=== PATIENT | male | born 1985 | race African-American/Black ===

== ENCOUNTER → 2016-09-21 | Outpatient (CLI) | payer OTHER ==
[~2016-09-21] MED LIST: ALPR.25T PO; GADOBUTROL 7.5 MMOL/7.5 ML (GADAVIST) VIAL IV ONE; HYOS0.1281 PO
--- NOTE | 2016-09-21 13:53 | Diagnostic Imaging Report ---
PROCEDURE: MR imaging of the brain with and without contrast. TECHNIQUE: Multiplanar, multisequence MR imaging of the brain was performed with and without contrast. INDICATION: Headache. Right foot numbness and dizziness. COMPARISON: Prior comparison exam of CT scan from 2013 is reviewed. No prior MRI of the brain is seen. CONTRAST: 7 mL of Gadavist is administered intravenously. FINDINGS: There is a relatively large abnormality seen within the left frontoparietal junction area with dimensions of 2.7 x 1.5 x 4.6 cm. There is signal void in it compatible with a high flow in numerous vessels compatible with an arteriovenous malformation in the brain. The abnormal dilated vessels appear to have drainage to the superior sagittal sinus. There are prominent arterial branches supplying it arising from the anterior cerebral arteries. There is mild surrounding edema around it. There is a suggestion of some prominent venous drainage through the internal cerebral vein into the straight sinus as well. There is no diffusion restriction to suggest an acute infarct or other diffusion abnormality. There is no evidence of a demyelinating lesion or neoplasm. The brainstem and the cerebellum appear unremarkable. There is CSF intensity filling the slightly dilated sella compatible with empty sella syndrome. There is no hydrocephalus. No extra-axial fluid collection is seen. The internal auditory canals and inner ear structures appear grossly unremarkable. IMPRESSION: A 4.6 cm left frontoparietal brain AVM. Since there is no previous MRI for comparison, a concurrent brain CT scan or preferably CTA of the head is recommended for further vascular assessment and for better equivalent comparison with prior CT of 09/08/2013 to assess for overall size change. Dictated by: Dictated on workstation # [id number]
--- NOTE | 2016-09-21 14:19 | Diagnostic Imaging Report ---
PROCEDURE: MR angiography of the brain without the use of contrast. TECHNIQUE: 3D [id number] non contrast enhanced MR angiography of the head was performed. A source data was reformatted into rotating MIP projections. INDICATION: AVM. FINDINGS: The entire carotid arteries are patent. The middle cerebral arteries are patent. The left anterior cerebral artery is patent. The right anterior cerebral artery A1 segment is patent. The A2 segment appears to terminate after a short course with suggestion of a collateral to the relatively large left DIDIER. 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 The left relatively large anterior cerebral artery courses superiorly as an azygos DIDIER before it bifurcates into two pericallosal branches. The posterior cerebral arteries, the basilar artery, and the vertebral arteries appear patent. The vertebral artery on the right side appears slightly more prominent. There is artifactual loss of signal at the base of the skull level with artifact over the vertebral arteries. No definite high-grade stenosis, occlusion, or aneurysm seen. There is a left frontoparietal AVM. There are feeding branches arising from the pericallosal arteries of the anterior cerebral artery. There are enlarged draining veins seen. There is also a less prominent contribution of the feeding vessels from the ascending branches of the left MCA. There is question of a small branch supply from the left CAMP TENDER as well. The venous drainage is mainly into the superior sagittal sinus with some drainage into the internal cerebral vein suggested as well. IMPRESSION: 1. Brain parenchymal AVM in the left frontoparietal region with arterial supply from multiple branches, most prominent from the pericallosal arteries, and to a lesser extent from ascending branches of the left MCA, and possibly some contribution from the left CAMP TENDER. The main venous drainage is into the superior sagittal sinus with some venous drainage into the internal cerebral vein into the straight sinus. 2. Further evaluation with CTA or conventional angiogram is suggested. Dictated by: Dictated on workstation # [id number]
== END ==
LOC: RAD 10:30
PROVIDERS: ATTEND Nurse Practitioner Community Health
DX: Q27.30 Arteriovenous malformation, site unspecified (principal)
CPT/HCPCS: 70544; 70553

== ENCOUNTER 2018-10-24 08:34 | Emergency (ER) | payer SELFPAY ==
[~2018-10-24] VITALS: Ht 182.9 cm; Wt 97.5 kg
[~2018-10-24 08:34] MED LIST changes: -GADOBUTROL 7.5 MMOL/7.5 ML (GADAVIST) VIAL IV ONE
[2018-10-24] MEDS ORDERED: ATROPINE INJECTION 1 MG/10 ML SYR (ABBOTT) INJ ONE (08:36)
[2018-10-24] MEDS ORDERED: SUCCINYLCHOLINE INJ 100 MG/5 ML SYR INJ ONE (08:36)
[2018-10-24] MEDS ORDERED: ROCURONIUM 10 MG/ML 5 ML SYRINGE IV ONE ×2 (08:36→10:30)
[2018-10-24] MEDS ORDERED: MIDAZOLAM 5 MG/5 ML (VERSED) VIAL IJ ONE (08:36)
--- NOTE | 2018-10-24 08:38 | NUR ---
VOMITING NASAL AIRWAY SUCTION AND SUCTION BY MOUTH COMPLETED.
--- NOTE | 2018-10-24 08:38 | NUR ---
ATTEMPT FOR A ORAL AIRWAY BY STUART HAWKINS.
--- NOTE | 2018-10-24 08:43 | NUR ---
STUART RN BAGGING ET PREPERATION FOR INTUBATION. SUCCINYLCHOLIE 100MG IV GIVEN. 0834 VERSED 5MG IV GIVEN. 0844 ROCURONIUM 100MG IV GIVEN.
[2018-10-24] MEDS ORDERED: LACTATED RINGERS 1,000 ML IV ONE ×2 (08:48→11:09)
[2018-10-24] MEDS ORDERED: NS IV 1000 ML 1,000 ML IV ONE ×2 (08:48→09:55)
--- NOTE | 2018-10-24 08:54 | NUR ---
RECTAL TEMP 106.7 ICE PACKS APPLIED TO BODY. ESCALATOR INSTALLER CONTACTED FOR COOLING BLANKETS.
[2018-10-24] MEDS ORDERED: ACETAMINOPHEN 650 MG SUPP (TYLENOL) PR ONE (09:00)
--- NOTE | 2018-10-24 09:02 | NUR ---
TO CT WITH THIS RN, DR GERARD, STUDENT NURSE, MONITORING SPECIALIST, AND RT.
--- NOTE | 2018-10-24 09:18 | NUR ---
BACKT FORM CT.
[2018-10-24 09:25] LABS: BASOPHILS % (AUTO) 0 % (0-10); EOSINOPHILS # (AUTO) 0.1 10^3/uL (0.0-0.3); EOSINOPHILS % (AUTO) 1 % (0-10); HEMATOCRIT 45 % (40-54); HEMOGLOBIN 15.3 G/DL (13.3-17.7); LYMPHOCYTES # (AUTO) 1.2 X 10^3 (1.0-4.0); LYMPHOCYTES % (AUTO) 13 % (12-44); MEAN CORPUSCULAR HEMOGLOBIN 30 PG (25-34); MEAN CORPUSCULAR HGB CONC 34 G/DL (32-36); MEAN CORPUSCULAR VOLUME 88 FL (80-99); MONOCYTES # (AUTO) 1.3 X 10^3 (0.0-1.0); MONOCYTES % (AUTO) 13 % (0-12); NEUTROPHILS # (AUTO) 7.1 X 10^3 (1.8-7.8); NEUTROPHILS % (AUTO) 73 % (42-75); PLATELET COUNT 288 10^3/uL (130-400); RED CELL DISTRIBUTION WIDTH 13.7 % (10.0-14.5); WHITE BLOOD COUNT 9.7 10^3/uL (4.3-11.0)
[2018-10-24 09:28] LABS: BILIRUBIN,URINE NEGATIVE (NEGATIVE); CLARITY,URINE CLEAR; COLOR,URINE YELLOW; GLUCOSE, URINE (UA) NEGATIVE (NEGATIVE); KETONES,URINE 1+ (NEGATIVE); LEUKOCYTE ESTERASE ,URINE 1+ (NEGATIVE); NITRITE,URINE NEGATIVE (NEGATIVE); PH,URINE 6 (5-9); PROTEIN,URINE 2+ (NEGATIVE); UROBILINOGEN,URINE 4 MG/DL (NORMAL)
--- NOTE | 2018-10-24 09:29 | Diagnostic Imaging Report ---
PROCEDURE: CT head wo r/o stroke. TECHNIQUE: Multiple contiguous axial images were obtained through the brain without the use of intravenous contrast. Auto Exposure Controls were utilized during the CT exam to meet ALARA standards for radiation dose reduction. INDICATION: Seizure. Comparison made with prior CT head from 09/08/2013 and prior MRI brain from 09/21/2016. FINDINGS: The ventricles and sulci are within normal limits. There is no hydrocephalus. There is no midline shift. There is a focal area of dystrophic calcification in the posterior left frontal lobe with some surrounding hyperdense areas. There are also some more bulbous hyperdense areas extending towards the vertex. When corresponding with the MRI, these more hyperdense bulbous areas correspond to large draining veins associated with the left posterior frontal lobe AVM. Overall when compared with prior examination of 2013, there is increased calcification and surrounding hyperdense areas presumably related to enlargement of the AVM. There is, however, no evidence of acute hemorrhage. There is no extra-axial fluid collection. Calvarium is intact. Sinuses and mastoid air cells are clear. IMPRESSION: Interval increase in size of the secondary findings of an arteriovenous malformation of the posterior left frontal lobe as described. No evidence of acute hemorrhage. If this has not been a previously evaluated with formal angiography is recommended for treatment planning. No other acute intracranial abnormality. Dictated by: Dictated on workstation # [id number]
--- NOTE | 2018-10-24 09:35 | NUR ---
DR GERARD IN FAMILY ROOM TALKING TO PT' S MOTHER.
[2018-10-24 09:37] LABS: PROTHROMBIN TIME PATIENT 13.3 SEC (12.2-14.7)
--- NOTE | 2018-10-24 09:38 | NUR ---
RT IN ROOM OBTAINING BLOOD GAS.
[2018-10-24 09:39] LABS: AMPHETAMINE SCREEN, URINE POSITIVE (NEGATIVE); BARBITURATE SCREEN URINE NEGATIVE (NEGATIVE); BENZODIAZEPINES SCREEN URINE NEGATIVE (NEGATIVE); CANNABINOID SCREEN, URINE POSITIVE (NEGATIVE); COCAINE SCREEN URINE NEGATIVE (NEGATIVE); METHADONE STAT NEGATIVE (NEGATIVE); METHAMPHETAMINE SCREEN URINE S POSITIVE (NEGATIVE); OPIATE SCREEN URINE NEGATIVE (NEGATIVE); OXYCODONE STAT NEGATIVE (NEGATIVE); PROPOXYPHENE STAT NEGATIVE (NEGATIVE); TRICYCLIC ANTIDEPRESSANTS SCRE NEGATIVE (NEGATIVE)
[2018-10-24 09:46] LABS: ALANINE AMINOTRANSFERASE 73 U/L (0-55); ALBUMIN 5.1 GM/DL (3.2-4.5); ALKALINE PHOSPHATASE 47 U/L (40-136); AMYLASE 51 U/L (25-125); BILIRUBIN,TOTAL 1.9 MG/DL (0.1-1.0); BUN/CREATININE RATIO 8; CALCIUM 10.5 MG/DL (8.5-10.1); CARBON DIOXIDE 24 MMOL/L (21-32); CHLORIDE 105 MMOL/L (98-107); CREATINE KINASE 2134 U/L (30-200); CREATININE SERUM 1.65 MG/DL (0.60-1.30); GFR ESTIMATED 59; GLUCOSE 102 MG/DL (70-105); LIPASE 26 U/L (8-78); MAGNESIUM 2.4 MG/DL (1.8-2.4); POTASSIUM 5.2 MMOL/L (3.6-5.0); SALICYLATE < 5.0 MG/DL (5.0-20.0); SODIUM 143 MMOL/L (135-145); TOTAL PROTEIN 8.5 GM/DL (6.4-8.2)
[2018-10-24 09:47] LABS: AMORPHOUS SEDIMENT,UR MOD AMOR URATES /LPF; BACTERIA,URINE MODERATE /HPF; RBC,URINE RARE /HPF; WBC,URINE 0-2 /HPF
[2018-10-24 09:48] LABS: URINE OTHER FEW SPERM /HPF
[2018-10-24 09:56] LABS: ACETAMINOPHEN < 10 UG/ML (10-30)
--- NOTE | 2018-10-24 09:59 | NUR ---
LAB CONTACTED FOR BLOOD DRAW. RECTAL TEMP AT THIS TIME 37.8 C OR 100F.
--- NOTE | 2018-10-24 10:05 | NUR ---
MOM BROUGHT INTO ROOM.
[2018-10-24 10:10] LABS: TSH (THYROID ANALYZER) 0.89 UIU/ML (0.35-4.94)
[2018-10-24 10:12] LABS: ABG BASE EXCESS -1.4 MMOL/L (-2.5-2.5); ABG OXYGEN SATURATION 98 % (94-100); ABG PCO2 60 MMHG (35-45); ABG PO2 126 MMHG (79-93); ABG TCO2 26.4 MMOL/L (21.0-31.0)
--- NOTE | 2018-10-24 10:12 | NUR ---
RAULH WITH PASTORAL CARE IN TALKING TO MOTHER.
--- NOTE | 2018-10-24 10:13 | NUR ---
LAB IN ROOM AT THIS TIME.
--- NOTE | 2018-10-24 10:15 | Diagnostic Imaging Report ---
Indication: Altered mental status, disorientation, intubation Comparison: 02/17/2015 Technique: Single radiograph of the chest dated 10/24/2018. Findings: Endotracheal tube is in place overlying the tracheal air column. This is slightly low lying, terminating approximately 1 cm above the level of the cisco. Recommend retraction of approximately 2 cm for optimal positioning. Enteric catheter is in place with the distal tip and sidehole within the stomach. The cardiac silhouette is at the upper limits of normal in size. No significant pulmonary vascular congestion. Low lung volumes. Mild veiling opacity within the left costophrenic angle may relate to tiny left pleural effusion. No pneumothorax. No acute osseous abnormality. IMPRESSION: Lines and tubes as described above. Endotracheal tube is slightly low lying. Recommend retraction of approximately 2 cm. Tiny left pleural effusion suspected. Low lung lines. Report was called to Dr. Enriquez [facility] ER by jesus at 10:15 am. Dictated by: Dictated on workstation # [id number]
[2018-10-24 10:16] LABS: ABG PH 7.24 (7.37-7.43)
[2018-10-24 10:17] LABS: ALLENS TEST YES-POS; PATIENT TEMP 101
--- NOTE | 2018-10-24 10:21 | NUR ---
MULTIPLE FAMILY IN ROOM. ASKED FOR ONLY TWO AT A TIME. MARISOL WENT WITH FAMILY INTO THE CONSULTATION ROOM.
--- NOTE | 2018-10-24 10:22 | NUR ---
PT STARTING TO HAVE EPISODES OF TWITCHING. DR GERARD NOTIFIED ET PHARMACY CONTACTED FOR ROCURONIUM.
--- NOTE | 2018-10-24 10:29 | NUR ---
RT IN ROOM PULLING ET TUBE TO 24CM PER RADIOLOGIST RECCOMENDATION.
--- NOTE | 2018-10-24 10:37 | NUR ---
PLANS ARE FOR DR TO CONTACT FOR TRANSFER.
[2018-10-24] MEDS ORDERED: cefTRIAXone FOR IV USE 1,000 MG in WATER (STERILE) FOR INJECTION 10 ML IV ONE (10:45)
--- NOTE | 2018-10-24 11:04 | NUR ---
NO CHANGE IN PT STATUS. MULITIPLE FAMILY MEMBERS IN ROOM AT THIS TIME.
--- NOTE | 2018-10-24 11:20 | NUR ---
DR GERARD STATES [facility] HAS ACCEPTED ET WE ARE WAITING ON THEM TO CALL US BACK FOR A ROOM. MOM NOTIFIED.
--- NOTE | 2018-10-24 11:21 | NUR ---
DR GERARD STATES SHE HAS CONTACTED RADIOLOGY FOR IMAGES TO BE CLOUDED AND HARD DISKS MADE.
--- NOTE | 2018-10-24 11:35 | NUR ---
SHIFT CAPTAIN AND DISPATCH NOTIFIED OF NEEDING TRANSFER TO .
--- NOTE | 2018-10-24 11:51 | NUR ---
RADIOLOGY CONTACTED FOR HARD DISKS AGAIN.
[2018-10-24 12:02] LABS: ABG OXYGEN SATURATION 92 % (94-100); ABG PCO2 51 MMHG (35-45); ABG PO2 72 MMHG (79-93); ABG TCO2 24.5 MMOL/L (21.0-31.0)
[2018-10-24 12:03] LABS: ABG PH 7.27 (7.37-7.43); ALLENS TEST POSITIVE; INSPIRED O2 VENT RR 16 VT500 100; PATIENT TEMP 98.4; VENTILATOR YES
--- NOTE | 2018-10-24 12:22 | NUR ---
DR GERARD IN ROOM AT THIS TIME.
[2018-10-24] MEDS ORDERED: MIDAZOLAM 5 MG/5 ML (VERSED) VIAL ONE (12:36)
[2018-10-24 12:49] VITALS: BP 121/87
[2018-10-24] MEDS ORDERED: MIDAZOLAM 5 MG/5 ML (VERSED) VIAL IVP ONE (13:00)
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
--- NOTE | 2018-10-24 16:41 | ED General ---
General Chief Complaint: Altered Mental Status Stated Complaint: AMS Nursing Triage Note: ARRIVED VIA EMS FROM HOME. REPORT IS THAT PT WAS RELEASED FROM [facility] ON TUESDAY AND STARTED DOING METH SINCE TUESDAY NIGHT WITH BROTHER. UPON EMS ARRIVAL PT SHAKING AND COMBATIVE. EMS CALLED IN ER FOR ORDERS. 10MG VALIUM GIVEN IM. UPON GETTING ON TO THE COT PT BEGAN HAVING SEIZURE LIKE ACTIVITY WITH POSTURING. VALIUM 5MH IV GIVEN. UPON EMS ARRIVAL PT IS BEING BAGGED, MOUTH CLAMPED, AND HAVING SEIXURE LIKE ACTIVITY. Nursing Sepsis Screen: No Definite Risk Source of Information: EMS, Family (MOTHER ( TREVON REVELES) ) Exam Limitations: Other (PT OBTUNDED) History of Present Illness Date Seen by Provider: Oct 24, 2018 Time Seen by Provider: 08:34 Initial Comments PT ARRIVES VIA EMS EMS STATES THAT BROTHER REPORTED TO THEM THAT HE HAD SOME "BAD METH" EMS REPORT THAT PT WAS SHAKING/"CONVULSING" AND WAS COMPLETELY OUT OF CONTROL AND VERY COMBATIVE AT THE SCENE, AND POLICE AND FIRE WERE ALSO ASSISTING AT THE SCENE PT WAS GIVEN VERSED 10 MG IM, AND THEN PT BEGAN HAVING SEIZURE LIKE ACTIVITY/ SHAKING ALL OVER AND "POSTURING". EMS WERE THEN ABLE TO ESTABLISH IV AND GAVE AND ADDITIONAL 5 MG VERSED IV, WITH SIGNIFICANT IMPROVEMENT IN SHAKING AND COMBATIVENESS, PER EMS ON ARRIVAL, PT WITH GENERALIZED TREMORS, WITH DECEREBRATE POSTURING, JAWS CLENCHED, DROOLING, PROFUSELY DIAPHORETIC, WITH SNOROUS BREATHING AND O2 SATS IN 60'S PT ALSO BEGAN VOMITING ON ARRIVAL. PER MOM, PT WAS RE[facility]ASED FROM [facility] ON Tuesday10/[facility]/18, AFTER BEING INCARCERATED FOR 2 YEARS SHE STATES THAT PT AND HIS BROTHER HAVE BEEN DOING METH SINCE HE GOT HOME ON TUESDAY ( MOM ALSO HAS EXTENSIVE DRUG ABUSE, ESPECIALLY METHAMPHETAMINES, AMONG OTHER SUBSTANCES) MOM STATES THAT BROTHER AND PT GOT HOME AROUND 0730 THIS AM AND BOTH WERE IN A SIMILAR CONDITION AND BROTHER WAS ON THE COUCH, BUT PT WAS WORSE. MOM STATES THAT PT WAS "FOAMING AND JERKING AND OUT OF IT" AND WAS COMPLETELY OUT OF CONTROL. MOM STATES THAT PT WAS SUPPOSED TO SEE HIS INTERVENTIONAL RADIOLOGY TECH YESTERDAY, BUT PT DID NOT GO. PT DOES HAVE A HISTORY OF BRAIN ANEURYSM --NO SURGERY DONE, PER MOM PT ALSO HAS HISTORY OF HTN, BUT DOES NOT TAKE MEDICATIONS FOR IT, PER MOM PCP: NONE Allergies and Home Medications Allergies Coded Allergies: Penicillins (Verified Adverse Reaction, Mild, 08/12/11) unknown reaction by pt Home Medications Hyoscyamine Sulfate 0.125 Mg Tablet, 0.125 MG PO Q4H Prescribed by: NICO WILSON on 09/16/15 1340 Patient Home Medication List Home Medication List Reviewed: Yes Review of Systems Review of Systems Constitutional: other (UNABLE TO OBTAIN) Past Vcdezzt-Taragy-Mlheil Hx Patient Social History Alcohol Use: Occasionally Uses Recreational Drug Use: Yes (+ METH, THC USE) Drug of Choice: METH, THC Smoking Status: Unknown if Ever Smoked Recent Foreign Travel: No Contact w/Someone Who Travel: No Recent Infectious Disease Expo: No Past Medical History Surgeries: Yes Appendectomy Respiratory: Yes Asthma Cardiac: Yes Hypertension Neurological: Yes (AVM BRAIN MALFORMATION) Stroke Reproductive Disorders: No Genitourinary: No Gastrointestinal: No Musculoskeletal: No Endocrine: No HEENT: No Cancer: No Psychosocial: Yes (POLYSUBSTANCE ABUSE) Depression Integumentary: No Blood Disorders: No Family Medical History Hypertension Physical Exam Vital Signs Vital Signs - First Documented 10/24/18 10/24/18 08:34 12:49 Temp 98.1 Pulse 188 Resp 16 B/P (MAP) 54/38 (43) Pulse Ox 87 O2 Delivery Ambu-Bag Capillary Refill : Less Than 3 Seconds Height, Weight, BMI Height: 6'9" Weight: 215lbs. oz. 97.205903fk; 27.32 BMI Method:Estimated General Appearance: Severe Distress, Other (PT PROFUSELY DIAPHORETIC, "GOOSEBUMPS" OVER ENTIRE BODY, SKIN FEELS COOL DISTALLY, BUT CORE/RECTAL TEMP IS 106.7 AND CORE OF BODY FEELS WARM. PT WITH SNOROUS BREATHING, DROOLING, AND COMPLETELY OBTUNDED, WITH GENERALIZED TREMORS, BODY TENSE WITH DECEREBRATE POSTURING AND JAWS ARE CLENCHED. ) Respiratory: Other ( ABOVE) Cardiovascular: Tachycardia Extremity: Slow Capillary Refill Neurologic/Psychiatric: Other ( ABOVE) Skin: Other (PT IS BLACK) Focused Exam Lactate Level 10/24/18 10:18: Lactic Acid Level 1.29 Procedures/Interventions Reason for Intubation: ALTERED MENTAL STATUS Date of ETT Placement: Oct 24, 2018 Time of ETT Placement: 0844 Intubation Method: orotracheal Tube Size: 7.50 Medications: Rocuronium, Succinylcholine, Versed Positive End Tide CO2: Yes Breath Sounds after Intubation: bilateral-equal Intubation Complications: no complications Post Intubation Xray: Yes (ET TUBE IN PLACE, BUT ADVISED TO PULL BACK APPROXIMATELY 2 CM, PER RADIOLOGIST REPORT. OTHER LINES IN PLACE. ) PT INTUBATED BY RT STAFF NO COMPLICATIONS. Progress/Results/Core Measures Suspected Sepsis Recent Fever Within 48 Hours: No Infection Criteria Present: None New/Unexplained Altered Menta: No Sepsis Screen: No Definite Risk SIRS Temperature:98.1 Pulse: 105 Respiratory Rate: 16 Laboratory Tests 10/24/18 09:00: White Blood Count 9.7 Blood Pressure 121 /87 Mean: 98 10/24/18 10:18: Lactic Acid Level 1.29 Laboratory Tests 10/24/18 09:00: Creatinine 1.65H, INR Comment 1.0, Platelet Count 288, Total Bilirubin 1.9H Results/Orders Lab Results Laboratory Tests Test 10/24/18 09:00 10/24/18 09:45 10/24/18 10:18 10/24/18 11:32 Range/Units White Blood Count 9.7 4.3-11.0 10^3/uL Red Blood Count 5.13 4.35-5.85 10^6/uL Hemoglobin 15.3 13.3-17.7 G/DL Hematocrit 45 40-54 % Mean Corpuscular Volume 88 80-99 FL Mean Corpuscular Hemoglobin 30 25-34 PG Mean Corpuscular Hemoglobin Concent 34 32-36 G/DL Red Cell Distribution Width 13.7 10.0-14.5 % Platelet Count 288 130-400 10^3/uL Mean Platelet Volume 10.0 7.4-10.4 FL Neutrophils (%) (Auto) 73 42-75 % Lymphocytes (%) (Auto) 13 12-44 % Monocytes (%) (Auto) 13 H 0-12 % Eosinophils (%) (Auto) 1 0-10 % Basophils (%) (Auto) 0 0-10 % Neutrophils # (Auto) 7.1 1.8-7.8 X 10^3 Lymphocytes # (Auto) 1.2 1.0-4.0 X 10^3 Monocytes # (Auto) 1.3 H 0.0-1.0 X 10^3 Eosinophils # (Auto) 0.1 0.0-0.3 10^3/uL Basophils # (Auto) 0.0 0.0-0.1 10^3/uL Prothrombin Time 13.3 12.2-14.7 SEC INR Comment 1.0 0.8-1.4 Activated Partial Thromboplast Time 25 24-35 SEC Urine Color YELLOW Urine Clarity CLEAR Urine pH 6 5-9 Urine Specific [place] 1.020 1.016-1.022 Urine Protein 2+ H NEGATIVE Urine Glucose (UA) NEGATIVE NEGATIVE Urine Ketones 1+ H NEGATIVE Urine Nitrite NEGATIVE NEGATIVE Urine Bilirubin NEGATIVE NEGATIVE Urine Urobilinogen 4 H NORMAL MG/DL Urine Leukocyte Esterase 1+ H NEGATIVE Urine RBC (Auto) NEGATIVE NEGATIVE Urine RBC RARE /HPF Urine WBC 0-2 /HPF Urine Squamous Epithelial Cells NONE /HPF Urine Renal Epithelial Cells NONE /HPF Urine Crystals PRESENT H /LPF Urine Amorphous Sediment MOD PRANAV URATES H /LPF Urine Bacteria MODERATE H /HPF Urine Casts NONE /LPF Urine Mucus SMALL H /LPF Urine Other FEW SPERM H /HPF Urine Culture Indicated NO Sodium Level 143 135-145 MMOL/L Potassium Level 5.2 H 3.6-5.0 MMOL/L Chloride Level 105 98-107 MMOL/L Carbon Dioxide Level 24 21-32 MMOL/L Anion Gap 14 5-14 MMOL/L Blood Urea Nitrogen 14 7-18 MG/DL Creatinine 1.65 H 0.60-1.30 MG/DL Estimat Glomerular Filtration Rate 59 BUN/Creatinine Ratio 8 Glucose Level 102 70-105 MG/DL Calcium Level 10.5 H 8.5-10.1 MG/DL Corrected Calcium 8.5-10.1 MG/DL Magnesium Level 2.4 1.8-2.4 MG/DL Total Bilirubin 1.9 H 0.1-1.0 MG/DL Aspartate Amino Transf (AST/SGOT) 91 H 5-34 U/L Alanine Aminotransferase (ALT/SGPT) 73 H 0-55 U/L Alkaline Phosphatase 47 40-136 U/L Total Creatine Kinase 2134 H 30-200 U/L Creatine Kinase MB 10.0 *H <6.6 NG/ML Myoglobin 2810.0 H 10.0-92.0 NG/ML Troponin I < 0.028 <0.028 NG/ML B-Type Natriuretic Peptide 10.5 <100.0 PG/ML Total Protein 8.5 H 6.4-8.2 GM/DL Albumin 5.1 H 3.2-4.5 GM/DL Amylase Level 51 25-125 U/L Lipase 26 8-78 U/L TSH [place] Testing 0.89 0.35-4.94 UIU/ML Salicylates Level < 5.0 L 5.0-20.0 MG/DL Urine Opiates Screen NEGATIVE NEGATIVE Urine Oxycodone Screen NEGATIVE NEGATIVE Urine Methadone Screen NEGATIVE NEGATIVE Urine Propoxyphene Screen NEGATIVE NEGATIVE Acetaminophen Level < 10 L 10-30 UG/ML Urine Barbiturates Screen NEGATIVE NEGATIVE Ur Tricyclic Antidepressants Screen NEGATIVE NEGATIVE Urine Phencyclidine Screen NEGATIVE NEGATIVE Urine Amphetamines Screen POSITIVE H NEGATIVE Urine Methamphetamines Screen POSITIVE H NEGATIVE Urine Benzodiazepines Screen NEGATIVE NEGATIVE Urine Cocaine Screen NEGATIVE NEGATIVE Urine Cannabinoids Screen POSITIVE H NEGATIVE Serum Alcohol < 10 <10 MG/DL Blood Gas Puncture Site R RAD RIGHT RADIAL Blood Gas Patient Temperature 101 98.4 Arterial Blood pH 7.24 *L 7.27 *L 7.37-7.43 Arterial Blood Partial Pressure CO2 60 H 51 H 35-45 MMHG Arterial Blood Partial Pressure O2 126 H 72 L 79-93 MMHG Arterial Blood HCO3 25 23 23-27 MMOL/L Arterial Blood Total CO2 26.4 24.5 21.0-31.0 MMOL/L Arterial Blood Oxygen Saturation 98 92 L 94-100 % Arterial Blood Base Excess -1.4 -3.0 L -2.5-2.5 MMOL/L [place] Test YES-POS POSITIVE Blood Gas Ventilator Setting NA YES Blood Gas Inspired Oxygen SEE COMMENT VENT RR 16 VT500 100 Lactic Acid Level 1.29 0.50-2.00 MMOL/L My Orders Orders - CAROLIN GERARD DO Ed Iv/Invasive Line Start (10/24/18 08:48) Ekg Tracing (10/24/18 08:48) Catheter(Urinary) Insert & Ass 03,15 (10/24/18 08:48) Ng Tube Insert & Assessment (10/24/18 08:48) Monitor-Rhythm Ecg Trace Only (10/24/18 08:48) Ct Head Wo-R/O Stroke (10/24/18 08:48) Chest 1 View, Ap/Pa Only (10/24/18 08:48) Acetaminophen (10/24/18 08:48) Alcohol (10/24/18 08:48) Amylase (10/24/18 08:48) Arterial Blood Gas (10/24/18 08:48) BNP (10/24/18 08:48) Cbc With Automated Diff (10/24/18 08:48) Comprehensive Metabolic Panel (10/24/18 08:48) Creatine Kinase (10/24/18 08:48) Creatine Kinase Mb (10/24/18 08:48) Drug Screen Stat (Urine) (10/24/18 08:48) Lactic Acid Analyzer (10/24/18 08:48) Lipase (10/24/18 08:48) Magnesium (10/24/18 08:48) Protime With Inr (10/24/18 08:48) Partial Thromboplastin Time (10/24/18 08:48) Salicylate (10/24/18 08:48) Thyroid Analyzer (10/24/18 08:48) Troponin I (10/24/18 08:48) Ua Culture If Indicated (10/24/18 08:48) Myoglobin Serum (10/24/18 08:48) Ed Iv/Invasive Line Start (10/24/18 08:48) Ns Iv 1000 Ml (Sodium Chloride 0.9%) (10/24/18 08:48) Lactated Ringers (Lr 1000 Ml Iv Solution (10/24/18 08:48) Acetaminophen Suppository (Tylenol Suppo (10/24/18 09:00) Ed Iv/Invasive Line Start (10/24/18 09:55) Ns Iv 1000 Ml (Sodium Chloride 0.9%) (10/24/18 09:55) Arterial Blood Gas (10/24/18 10:05) Rocuronium 5 Ml Syringe (Rocuronium 5 Ml (10/24/18 10:30) Arterial Blood Gas (10/24/18 10:32) Ceftriaxone For Iv Use (Rocephin For I (10/24/18 10:45) Ed Iv/Invasive Line Start (10/24/18 11:09) Lactated Ringers (Lr 1000 Ml Iv Solution (10/24/18 11:09) Blood Culture (10/24/18 11:40) Blood Culture (10/24/18 11:41) Midazolam Injection (Versed Injection) (10/24/18 12:36) Midazolam Injection (Versed Injection) (10/24/18 13:00) Sputum Culture (10/24/18 14:29) Medications Given in ED Current Medications Medications Dose Ordered Sig/Annel Route Start Time Stop Time Status Last Admin Dose Admin Acetaminophen 1,950 mg ONCE ONCE OH 10/24/18 09:00 10/24/18 09:01 DC 10/24/18 09:21 1,950 MG Ceftriaxone Sodium 1000 mg/ Sterile Water 10 ml @ 200 mls/hr ONCE ONCE IV 10/24/18 10:45 10/24/18 10:47 DC 10/24/18 10:57 200 MLS/HR Lactated Ringer's 1,000 ml @ 0 mls/hr Q0M ONCE IV 10/24/18 08:48 10/24/18 08:50 DC 10/24/18 09:21 1,000 MLS/HR Lactated Ringer's 1,000 ml @ 0 mls/hr Q0M ONCE IV 10/24/18 11:09 10/24/18 11:10 DC 10/24/18 11:13 1,000 MLS/HR Midazolam HCl 10 mg ONCE ONCE IVP 10/24/18 13:00 10/24/18 13:01 DC 10/24/18 12:40 10 MG Rocuronium [place] 100 mg ONCE ONCE IV 10/24/18 10:30 10/24/18 10:31 DC 10/24/18 10:28 100 MG Sodium Chloride 1,000 ml @ 0 mls/hr Q0M ONCE IV 10/24/18 08:48 10/24/18 08:50 DC 10/24/18 08:41 1,000 MLS/HR Sodium Chloride 1,000 ml @ 0 mls/hr Q0M ONCE IV 10/24/18 09:55 10/24/18 09:56 DC 10/24/18 09:50 1,000 MLS/HR Vital Signs/I&O 10/24/18 10/24/18 08:34 12:49 Temp 98.1 Pulse 188 105 Resp 16 16 B/P (MAP) 54/38 (43) 121/87 (98) Pulse Ox 87 100 O2 Delivery Ambu-Bag Mechanical Ventilator Capillary Refill : Less Than 3 Seconds Blood Pressure Mean: 98 Progress Note : Progress Note IMMEDIATELY STARTED BAGGING PT ON ARRIVAL, ATTEMPTS TO PASS NASAL AIRWAY AND ORAL AIRWAY UNSUCCESSFUL--THIS WAS ATTEMPTED PT WAS BEING PREPPED FOR INTUBATION O2 SATS UP WITH BAGGING POST INTUBATION, O2 SATS UP TO 100% PT GIVEN TYLENOL RECTALLY AND ICE BAGS APPLIED TO PT, WITH DECREASED IN BODY TEMP--TEMP DOWN TO 99 AT TIME OF TRANSFER NO DETERIORATION IN PT'S CONDITION DURING ER STAY BP UP, HEART RATE DOWN, TEMP DOWN AT TIME OF TRANSFER. ECG Initial ECG Impression Date: Oct 24, 2018 Initial ECG Impression Time: 09:21 Initial ECG Rate: 157 Initial ECG Rhythm: S.Tach Initial ECG Comparisson: No Previous ECG Available Diagnostic Imaging Comments CT HEAD--INTERVAL INCREASE IN SIZE OF SECONDARY FINDINGS OF AV MALFORMATION OF POSTERIOR LEFT FRONTAL LOBE. NO ACUTE HEMORRHAGE. NO ACUTE PROCESS--PER RADIOLOGIST VERBAL REPORT--COMPARED TO CT HEAD FROM 08/2013 AND MRI 08/2016 CXR--TUBES/LINES IN PLACE, WITH LOW-LYING ET TUBE, RECOMMEND RETRACTION OF 2 CM ; TINY LEFT PLEURAL EFFUSION. PER RADIOLOGIST VIA PHONE Reviewed: Reviewed by Me, Discussed w/Radiologist Critical Care Note Critical Care Total Time (minutes) 60 MINUTES Departure Communication (Admissions) 0855--SPOKE WITH DR. FRANCISCO, REGARDING RECOMMENDATIONS FOR HEART RATE WITH HYPOTENSION, HE ADVISES IV FLUIDS ONLY AT THIS TIME. 1030--ATTEMPTING TO CONTACT [facility]--MULTIPLE ATTEMPTS USING MULTIPLE DIFFERENT NUMBERS, THEIR PHONE LINES NOT WORKING. THIS FACILITY IS ON ICU DIVERSION. 1104--EVENTUALLY ABLE TO CONTACT [facility] TRANSFER LINE--THEY WILL CALL BACK 1113--[facility] CALLED BACK, DR. MIQUEL CORONEL HAS ACCEPTED PT FOR TRANSFER. NO ADDITIONAL RECOMMENDATIONS DUE TO EXTREMELY BAD WEATHER, NO AIR TRANSPORT IS AVAILABLE, SO PT WILL BE TRANSFERRED BY GROUND EMS. Impression Primary Impression: SEVERE METHAMPHETAMINE TOXICITY Additional Impressions: Seizure-like activity SVT (supraventricular tachycardia) Hypotension Shock HYPERTHERMIA Renal insufficiency Acidosis Elevated liver enzymes Acute respiratory failure Disposition: XFER SHT-TRM HOSP Condition: Critical (ERASED) Transfer Transfer Facility: Method of Transfer: EMS ([facility]) Departure-Patient Inst. Referrals: RAMOS MORALES DO (PCP/Family) Primary Care Physician CAROLIN GERARD DO Oct 24, 2018 16:41
== END 2018-10-24 12:49 | disposition short-term general hospital (02) ==
LOC: EDUNIT# 08:34 → ER 08:35
DX: T43.621A Poisoning by amphetamines, accidental (unintentional), initial encounter (principal); I47.1 Supraventricular tachycardia; I95.9 Hypotension, unspecified; R57.9 Shock, unspecified; R50.9 Fever, unspecified; N28.9 Disorder of kidney and ureter, unspecified; E87.2 Acidosis; J96.00 Acute respiratory failure, unspecified whether with hypoxia or hypercapnia; R94.5 Abnormal results of liver function studies; R25.9 Unspecified abnormal involuntary movements; J45.909 Unspecified asthma, uncomplicated; I10 Essential (primary) hypertension; F12.10 Cannabis abuse, uncomplicated; F15.10 Other stimulant abuse, uncomplicated; F32.9 Major depressive disorder, single episode, unspecified; Z86.73 Personal history of transient ischemic attack (TIA), and cerebral infarction without residual deficits; Z91.14 Patient's other noncompliance with medication regimen; Z88.0 Allergy status to penicillin; Z90.49 Acquired absence of other specified parts of digestive tract
CPT/HCPCS: 31500; 36415; 51702; 70450; 71045; 80053; 80306; 80320; 80329; 81000; 82150; 82550; 82553; 82805; 83605; 83690; 83735; 83874; 83880; 84443; 84484; 85025; 85610; 85730; 87040; 87070; 87077; 87205; 93005; 93041; 96361; 96365; 99291

== ENCOUNTER 2019-09-19 22:47 | Emergency (ER) | payer MEDICAID, OTHER ==
[2019-09-19] MEDS ORDERED: NS IV 1000 ML 1,000 ML IV SCH (22:49)
--- NOTE | 2019-09-19 23:21 | ED Psychosocial ---
General Stated Complaint: COUGH,PARANOIA Source: patient (DIFFICULT, LIMITED AND VAGUE HISTORIAN), EMS, old records History of Present Illness Date Seen by Provider: Sep 19, 2019 Time Seen by Provider: 22:54 Initial Comments PT ARRIVES VIA EMS EMS WAS CALLED TO [facility], PT SHOWED UP THERE TONIGHT, BECAUSE HE THOUGHT SOMEONE WAS FOLLOWING HIM--PARANOID POLICE HAVE RECEIVED MULTIPLE CALLS THIS LAST WEEK FOR PT BEING PARANOID AND AND RANDOMLY GOING UP TO PEOPLE'S HOUSES AND KNOCKING ON DOORS, ETC. PT STATES HE HAS BEEN DOING METH--USES ON REGULAR BASIS. STATES TONIGHT HE SMOKED IT, ALONG WITH MARIJUANA, AND STATES "THERE MIGHT HAVE BEEN SOME COCAINE" PT HAS USED DRUGS IV IN THE PAST WELL--INCLUDING METH, COCAINE, "SYNTHETIC HEROIN" PT HAD REPORTED COUGH AND SORE THROAT SINCE MARCH TO EMS, BUT DOES NOT VOICE THOSE COMPLAINTS HERE. PT HAS NO COMPLAINTS OF ANY KIND NOW. PCP: DR. MORLAES Allergies and Home Medications Allergies Coded Allergies: Penicillins (Verified Adverse Reaction, Mild, 08/12/11) unknown reaction by pt Home Medications Hyoscyamine Sulfate 0.125 Mg Tablet, 0.125 MG PO Q4H Prescribed by: NICO WILSON on 09/16/15 1340 Patient Home Medication List Home Medication List Reviewed: Yes Review of Systems Constitutional: no symptoms reported Psychiatric/Neurological: See HPI Past Uordogv-Wdhdyg-Fkbosk Hx Past Med/Social Hx: Reviewed and Corrections made Patient Social History Recreational Drug Use: Yes (+IV METH, COCAINE, "SYNTHETIC HEROIN", THC, OTHERS- HEAVY/REGULAR USE ) Drug of Choice: + IV METH, COCAINE, "SYNTHETIC HEROIN", THC, OTHERS- HEAVY/REGULAR USE Smoking Status: Current Everyday Smoker Type Used: Cigarettes Past Medical History Surgeries: Yes Appendectomy, Tonsillectomy Respiratory: Yes Asthma Cardiac: Yes (DOES NOT TAKE MEDICATIONS) Hypertension Neurological: Yes (AVM BRAIN MALFORMATION--NO SURGERY) Stroke Reproductive Disorders: No Genitourinary: No Gastrointestinal: No Musculoskeletal: No Endocrine: No HEENT: No Cancer: No Psychosocial: Yes (POLYSUBSTANCE ABUSE) Depression Integumentary: No Blood Disorders: No Family Medical History Hypertension PT HAS BEEN INCARCERATED FOR 2 YEARS, AND WAS RELEASED 10/20/18 PT IN ER 10/24/18 AFTER OVERDOSING ON METHAMPHETAMINE AND WAS SEVERELY TOXIC FROM IT, REQUIRING INTUBATION AND TRANSFER TO Physical Exam Capillary Refill : Height, Weight, BMI Height: 6'9" Weight: 215lbs. oz. 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, no motor/sensory deficits, alert, oriented x 3 Appearance/Memory: denies illness, impaired insight, impaired recent memory Behavior/Eye Contact: No threatening eye contact, No belligerent, No compulsive, No uncooperative Thoughts/Hallucinations: no apparent hallucination, flight of ideas; No grandiose, No obsessive, No persecution, No phobic, No islam; other (NO PARANOID BEHAVIOR/CONVERSATIONS DURING ER STAY) Skin: normal color (PT IS BLACK), warm/dry Procedures/Interventions Date of ETT Placement: Oct 24, 2018 Time of ETT Placement: 08 Progress/Results/Core Measures Results/Orders Lab Results Laboratory Tests Test 09/19/19 23:05 09/19/19 23:18 Range/Units Group A Streptococcus Screen NEGATIVE NEGATIVE White Blood Count 9.5 4.3-11.0 10^3/uL Red Blood Count 4.61 4.35-5.85 10^6/uL Hemoglobin 14.0 13.3-17.7 G/DL Hematocrit 40 40-54 % Mean Corpuscular Volume 87 80-99 FL Mean Corpuscular Hemoglobin 30 25-34 PG Mean Corpuscular Hemoglobin Concent 35 32-36 G/DL Red Cell Distribution Width 14.1 10.0-14.5 % Platelet Count 290 130-400 10^3/uL Mean Platelet Volume 9.4 7.4-10.4 FL Neutrophils (%) (Auto) 73 42-75 % Lymphocytes (%) (Auto) 17 12-44 % Monocytes (%) (Auto) 8 0-12 % Eosinophils (%) (Auto) 2 0-10 % Basophils (%) (Auto) 0 0-10 % Neutrophils # (Auto) 7.0 1.8-7.8 X 10^3 Lymphocytes # (Auto) 1.6 1.0-4.0 X 10^3 Monocytes # (Auto) 0.8 0.0-1.0 X 10^3 Eosinophils # (Auto) 0.1 0.0-0.3 10^3/uL Basophils # (Auto) 0.0 0.0-0.1 10^3/uL Sodium Level 139 135-145 MMOL/L Potassium Level 3.7 3.6-5.0 MMOL/L Chloride Level 101 98-107 MMOL/L Carbon Dioxide Level 25 21-32 MMOL/L Anion Gap 13 5-14 MMOL/L Blood Urea Nitrogen 5 L 7-18 MG/DL Creatinine 0.90 0.60-1.30 MG/DL Estimat Glomerular Filtration Rate > 60 BUN/Creatinine Ratio 6 Glucose Level 85 70-105 MG/DL Calcium Level 9.4 8.5-10.1 MG/DL Corrected Calcium 9.0 8.5-10.1 MG/DL Magnesium Level 2.1 1.6-2.4 MG/DL Total Bilirubin 1.0 0.1-1.0 MG/DL Aspartate Amino Transf (AST/SGOT) 34 5-34 U/L Alanine Aminotransferase (ALT/SGPT) 40 0-55 U/L Alkaline Phosphatase 47 40-136 U/L Total Protein 7.4 6.4-8.2 GM/DL Albumin 4.5 3.2-4.5 GM/DL Free Thyroxine 1.06 0.70-1.48 NG/DL TSH [place] Testing 0.00 L 0.35-4.94 UIU/ML Salicylates Level < 5.0 L 5.0-20.0 MG/DL Acetaminophen Level < 10 L 10-30 UG/ML Serum Alcohol < 10 <10 MG/DL Monoscreen NEGATIVE NEGATIVE Micro Results Microbiology 09/19/19 Influenza Types A,B Antigen (EDUARD) - Final, Complete My Orders Orders - CAROLIN GERARD DO Chest 1 View, Ap/Pa Only (09/19/19 23:02) Magnesium (09/19/19 23:02) Monotest (09/19/19 23:02) Rapid Strep A Screen (09/19/19 23:02) Influenza A And B Antigens (09/19/19 23:02) Progress Progress Note : Progress Note PT HAD NO COMPLAINTS, VITALS STABLE PT REFUSED TO GIVE UA 0009--PT NOW SIGNING OUT AMA. GAIT STEADY, SPEECH CLEAR. Initial ECG Impression Date: Sep 19, 2019 Initial ECG Impression Time: 23:10 Initial ECG Rate: 86 Initial ECG Rhythm: Normal Sinus Departure Impression Primary Impression: Left against medical advice Additional Impression: Methamphetamine use Disposition: 07 AGAINST MEDICAL ADVICE Condition: Against Medical Advice Departure-Patient Inst. Referrals: RAMOS MORALES DO (PCP/Family) Primary Care Physician CAROLIN GERARD DO Sep 19, 2019 23:21
[2019-09-19 23:27] LABS: BASOPHILS % (AUTO) 0 % (0-10); EOSINOPHILS # (AUTO) 0.1 10^3/uL (0.0-0.3); EOSINOPHILS % (AUTO) 2 % (0-10); HEMATOCRIT 40 % (40-54); LYMPHOCYTES # (AUTO) 1.6 X 10^3 (1.0-4.0); LYMPHOCYTES % (AUTO) 17 % (12-44); MEAN CORPUSCULAR HEMOGLOBIN 30 PG (25-34); MEAN CORPUSCULAR HGB CONC 35 G/DL (32-36); MEAN CORPUSCULAR VOLUME 87 FL (80-99); MEAN PLATELET VOLUME 9.4 FL (7.4-10.4); MONOCYTES # (AUTO) 0.8 X 10^3 (0.0-1.0); MONOCYTES % (AUTO) 8 % (0-12); NEUTROPHILS % (AUTO) 73 % (42-75); PLATELET COUNT 290 10^3/uL (130-400); RED CELL DISTRIBUTION WIDTH 14.1 % (10.0-14.5); WHITE BLOOD COUNT 9.5 10^3/uL (4.3-11.0)
[2019-09-19 23:47] LABS: ALANINE AMINOTRANSFERASE 40 U/L (0-55); ALBUMIN 4.5 GM/DL (3.2-4.5); ALKALINE PHOSPHATASE 47 U/L (40-136); BUN/CREATININE RATIO 6; CALCIUM 9.4 MG/DL (8.5-10.1); CARBON DIOXIDE 25 MMOL/L (21-32); CHLORIDE 101 MMOL/L (98-107); GFR ESTIMATED > 60; GLUCOSE 85 MG/DL (70-105); MAGNESIUM 2.1 MG/DL (1.6-2.4); POTASSIUM 3.7 MMOL/L (3.6-5.0); SALICYLATE < 5.0 MG/DL (5.0-20.0); SODIUM 139 MMOL/L (135-145); TOTAL PROTEIN 7.4 GM/DL (6.4-8.2)
[2019-09-19 23:49] LABS: ACETAMINOPHEN < 10 UG/ML (10-30)
[2019-09-20 00:46] LABS: FREE T4 (FREE THYROXINE) 1.06 NG/DL (0.70-1.48)
--- NOTE | 2019-09-20 05:45 | Diagnostic Imaging Report ---
INDICATION: Cough COMPARISON: 10/24/2018 FINDINGS: Single frontal view of the chest demonstrates normal heart size and pulmonary vascularity. The lungs are well aerated and clear. No large pleural effusion or pneumothorax is seen. The visualized osseous structures show no acute abnormalities. IMPRESSION: 1. No acute cardiopulmonary process. Dictated by: Dictated on workstation # [id number]
== END 2019-09-20 00:12 | disposition left against medical advice (07) ==
LOC: EDUNIT# 22:47 → ER 22:48
DX: F15.90 Other stimulant use, unspecified, uncomplicated (principal); J45.909 Unspecified asthma, uncomplicated; I10 Essential (primary) hypertension; Z86.73 Personal history of transient ischemic attack (TIA), and cerebral infarction without residual deficits; Z88.0 Allergy status to penicillin
CPT/HCPCS: 36415; 71045; 80053; 80320; 80329; 83735; 84439; 84443; 85025; 86308; 87430; 87804; 93005

== ENCOUNTER 2019-10-22 01:39 | Emergency (ER) | payer OTHER ==
[~2019-10-22] VITALS: Ht 175 cm; Wt 84.0 kg
--- NOTE | 2019-10-22 01:56 | ED Headache ---
General Stated Complaint: HEADACHES History of Present Illness Date Seen by Provider: Oct 22, 2019 Time Seen by Provider: 01:45 Initial Comments Patient presents to ER by private conveyance with chief complaint of a headache. He came in to the ER and asked the front end web designer for some jackson so he could get something to eat or drink. He then locked himself in the bathroom and then refused to leave. When police were called he decided to check For his headache. He says he's had this headache for 3 days. He's had a history of headaches and his been using Tylenol or ibuprofen but is not sure which. He says he used methamphetamines today. The patient denies alcohol use. He is not having any weakness numbness slurring speech or facial droop. No history of stroke. He says [facility] 5 or 6 years ago he had a scan that demonstrated an AV malformation. He's never had stroke, hemorrhagic or ischemic. Follows with Dr. Morales. Headache is not the worst in his life time nor does have a thunderclap onset. He is not having any blurry vision nausea fever chills cough or shortness of breath. Allergies and Home Medications Allergies Coded Allergies: Penicillins (Verified Adverse Reaction, Mild, 08/12/11) unknown reaction by pt Home Medications Hyoscyamine Sulfate 0.125 Mg Tablet, 0.125 MG PO Q4H Prescribed by: NICO WILSON on 09/16/15 1340 Patient Home Medication List Home Medication List Reviewed: Yes Review of Systems Review of Systems Constitutional: No chills, No diaphoresis Eyes: Denies Blindness, Denies Blurred Vision Ears, Nose, Mouth, Throat: denies ear pain, denies nose pain Respiratory: No cough, No short of breath Cardiovascular: No chest pain, No edema Gastrointestinal: No abdominal pain, No nausea Genitourinary: No discharge, No dysuria Musculoskeletal: No back pain, No joint pain All Other Systems Reviewed Negative Unless Noted: Yes Past Lwojfqg-Qrjyre-Rgszhg Hx Patient Social History Alcohol Use: Denies Use Recreational Drug Use: Yes Drug of Choice: + IV METH, COCAINE, "SYNTHETIC HEROIN", THC, OTHERS- HEAVY/REGULAR USE Smoking Status: Current Someday Smoker Type Used: Cigarettes Recent Foreign Travel: No Contact w/Someone Who Travel: No Past Medical History Surgeries: Yes Appendectomy, Tonsillectomy Respiratory: Yes Asthma Cardiac: Yes (DOES NOT TAKE MEDICATIONS) Hypertension Neurological: Yes (AVM BRAIN MALFORMATION--NO SURGERY) Stroke Reproductive Disorders: No Genitourinary: No Gastrointestinal: No Musculoskeletal: No Endocrine: No HEENT: No Cancer: No Psychosocial: Yes (POLYSUBSTANCE ABUSE) Depression Integumentary: No Blood Disorders: No Family Medical History Hypertension PT HAS BEEN INCARCERATED FOR 2 YEARS, AND WAS RELEASED 10/20/18 PT IN ER 10/24/18 AFTER OVERDOSING ON METHAMPHETAMINE AND WAS SEVERELY TOXIC FROM IT, REQUIRING INTUBATION AND TRANSFER TO Physical Exam Vital Signs Capillary Refill : Height, Weight, BMI Height: 6'9" Weight: 215lbs. oz. 97.253498vh; 27.32 BMI Method:Estimated General Appearance: WD/WN, no apparent distress (animated, rhythmic, jerking motions) HEENT: PERRL/EOMI (3 mm bilateral reactive pupils), normal ENT inspection, TMs normal, pharynx normal Neck: non-tender, full range of motion, supple, normal inspection Cardiovascular: normal peripheral pulses, regular rate, rhythm Respiratory: no respiratory distress, no accessory muscle use Extremities: normal range of motion, normal inspection, no pedal edema, normal capillary refill Psychiatric: alert, oriented x 3 Crainal Nerves: normal hearing, normal speech, PERRL Coordination/Gait: normal gait Motor/Sensory: no motor deficit, no sensory deficit Skin: normal color, warm/dry Procedures/Interventions Date of ETT Placement: Oct 24, 2018 Time of ETT Placement: 08 Progress/Results/Core Measures Results/Orders My Orders Orders - YOANNA DYE Ketorolac Injection (Toradol Injection) (10/22/19 02:00) Progress Progress Note : Time: 02:01 Progress Note Suspect a combination of malingering and methamphetamine use. We have offered NSAIDs for his pain and encouraged him to follow-up with primary care. No red flag symptoms. Departure Impression Primary Impression: Headache Qualified Codes: G44.209 - Tension-type headache, unspecified, not intractab le Disposition: 01 HOME, SELF-CARE Condition: Stable Departure-Patient Inst. Decision time for Depature: 01:56 Referrals: RAMOS MORALES DO (PCP/Family) Primary Care Physician Patient Instructions: Tension Headache (DC) Add. Discharge Instructions: Tylenol 1000 mg every 8 hours as needed for headache. Ibuprofen 800 mg every 8 hours needed for headache. Drink fluids such as water. Get rest. Return to the ER if you have worsening symptoms YOANNA DYE Oct 22, 2019 01:56
[2019-10-22 01:59] VITALS: BP 143/97
[2019-10-22] MEDS ORDERED: KETOROLAC 30 MG/ML VIAL IM ONE (02:00)
== END 2019-10-22 01:59 | disposition home or self-care (01) ==
LOC: EDUNIT# 01:39 → ER 01:41
DX: R51 Headache (principal); F17.210 Nicotine dependence, cigarettes, uncomplicated; Z88.0 Allergy status to penicillin; Z86.73 Personal history of transient ischemic attack (TIA), and cerebral infarction without residual deficits; Z82.49 Family history of ischemic heart disease and other diseases of the circulatory system
CPT/HCPCS: 99284

== ENCOUNTER 2020-02-24 11:14 | Emergency (ER) | payer OTHER ==
[~2020-02-24] VITALS: Ht 175 cm; Wt 84.0 kg
[2020-02-24 11:17] VITALS: BP 116/82
--- NOTE | 2020-02-24 11:30 | ED Integumentary General ---
General Stated Complaint: RASH ON L ARM Source: patient Exam Limitations: no limitations History of Present Illness Date Seen by Provider: Feb 24, 2020 Time Seen by Provider: 11:25 Initial Comments Itchy bumps on the left arm as well as anterior and posterior torso. Present for about 1-2 days. No known cause. Timing/Duration: yesterday Severity: moderate Possible Cause: no cause identified Associated Symptoms: denies symptoms Allergies and Home Medications Allergies Coded Allergies: Penicillins (Verified Adverse Reaction, Mild, 08/12/11) unknown reaction by pt Home Medications Hyoscyamine Sulfate 0.125 Mg Tablet, 0.125 MG PO Q4H Prescribed by: NICO WILSON on 09/16/15 1340 Patient Home Medication List Home Medication List Reviewed: Yes Review of Systems Review of Systems Constitutional: see HPI EENTM: see HPI Respiratory: no symptoms reported Cardiovascular: no symptoms reported Genitourinary: no symptoms reported Musculoskeletal: no symptoms reported Skin: see HPI Psychiatric/Neurological: No Symptoms Reported Endocrine: No Symptoms Reported Hematologic/Lymphatic: No Symptoms Reported Past Gnqagaz-Nloaxv-Uyttce Hx Patient Social History Drug of Choice: + IV METH, COCAINE, "SYNTHETIC HEROIN", THC, OTHERS- HEAVY/REGULAR USE Type Used: Cigarettes Recent Foreign Travel: No Contact w/Someone Who Travel: No Immunizations Up To Date Tetanus Booster (TDap): Unknown PED Vaccines UTD: Yes Past Medical History Surgeries: Yes Appendectomy, Tonsillectomy Respiratory: Yes Asthma Cardiac: Yes (DOES NOT TAKE MEDICATIONS) Hypertension Neurological: Yes (AVM BRAIN MALFORMATION--NO SURGERY) Stroke Reproductive Disorders: No Genitourinary: No Gastrointestinal: No Musculoskeletal: No Endocrine: No HEENT: No Cancer: No Psychosocial: Yes (POLYSUBSTANCE ABUSE) Depression Integumentary: No Blood Disorders: No Family Medical History Hypertension PT HAS BEEN INCARCERATED FOR 2 YEARS, AND WAS RELEASED 10/20/18 PT IN ER 10/24/18 AFTER OVERDOSING ON METHAMPHETAMINE AND WAS SEVERELY TOXIC FROM IT, REQUIRING INTUBATION AND TRANSFER TO Physical Exam Vital Signs Capillary Refill : General Appearance: WD/WN, no apparent distress Neck: non-tender, full range of motion Respiratory: no respiratory distress, no accessory muscle use Neurologic/Psychiatric: alert, normal mood/affect, oriented x 3 Skin: normal color, warm/dry, other (erythematous pruritic bumps) Skin Problem Character: other Procedures/Interventions Date of ETT Placement: Oct 24, 2018 Time of ETT Placement: 08 Progress/Results/Core Measures Results/Orders My Orders Orders - SREE HOOPER APRN Dexamethasone Injection (Decadron Inje (02/24/20 11:30) Departure Impression Primary Impression: Insect bite Qualified Codes: W57.XXXA - Bitten or stung by nonvenomous insect and other nonvenomous arthropods, initial encounter Disposition: ADMITTED INPATIENT Condition: Stable Departure-Patient Inst. Decision time for Depature: 11:30 Referrals: RAMOS MORALES DO (PCP/Family) Primary Care Physician Patient Instructions: Insect Bites and Stings SREE HOOPER APRN Feb 24, 2020 11:30
--- NOTE | 2020-02-24 11:42 | NUR ---
PT STATES OUT OF HYDROCODONE MEDICATION
== END 2020-02-24 11:47 | disposition other institution (70) ==
LOC: EDUNIT# 11:14 → ER 11:16
DX: L29.9 Pruritus, unspecified (principal); W57.XXXA Bitten or stung by nonvenomous insect and other nonvenomous arthropods, initial encounter; Z88.0 Allergy status to penicillin
CPT/HCPCS: 99284

== ENCOUNTER 2020-03-31 15:03 | Emergency (ER) | payer OTHER ==
[~2020-03-31] VITALS: Ht 170.1 cm; Wt 75.0 kg
[2020-03-31 15:08] VITALS: BP 139/82
--- NOTE | 2020-03-31 15:16 | ED General ---
General Stated Complaint: HEADACHE Source of Information: Patient, Caregiver Exam Limitations: No Limitations History of Present Illness Date Seen by Provider: Mar 31, 2020 Time Seen by Provider: 15:14 Initial Comments To ER with chronic headaches and he would like his hydrocodone 7.5 mg tablets refilled. Timing/Duration: 1-2 Days Severity: Moderate Associated Systoms: Denies Symptoms Allergies and Home Medications Allergies Coded Allergies: Penicillins (Verified Adverse Reaction, Mild, 08/12/11) unknown reaction by pt Home Medications Hyoscyamine Sulfate 0.125 Mg Tablet, 0.125 MG PO Q4H Prescribed by: NICO WILSON on 09/16/15 1340 Patient Home Medication List Home Medication List Reviewed: Yes Review of Systems Review of Systems Constitutional: see HPI EENTM: see HPI Respiratory: no symptoms reported Cardiovascular: no symptoms reported Genitourinary: no symptoms reported Musculoskeletal: no symptoms reported Skin: no symptoms reported Psychiatric/Neurological: No Symptoms Reported Hematologic/Lymphatic: No Symptoms Reported Past Zanrqyf-Ihjtst-Pobbjp Hx Patient Social History Drug of Choice: + IV METH, COCAINE, "SYNTHETIC HEROIN", THC, OTHERS-HEAVY /REGULAR USE Type Used: Cigarettes 2nd Hand Smoke Exposure: No Recent Foreign Travel: No Contact w/Someone Who Travel: No Recent Hopitalizations: No Immunizations Up To Date Tetanus Booster (TDap): Unknown PED Vaccines UTD: Yes Seasonal Allergies Seasonal Allergies: No Past Medical History Surgeries: Yes Appendectomy, Tonsillectomy Respiratory: Yes Asthma Cardiac: Yes (DOES NOT TAKE MEDICATIONS) Hypertension Neurological: Yes (AVM BRAIN MALFORMATION--NO SURGERY) Stroke Reproductive Disorders: No Genitourinary: No Gastrointestinal: No Musculoskeletal: No Endocrine: No HEENT: No Cancer: No Psychosocial: Yes (POLYSUBSTANCE ABUSE) Depression Integumentary: No Blood Disorders: No Family Medical History Hypertension PT HAS BEEN INCARCERATED FOR 2 YEARS, AND WAS RELEASED 10/20/18 PT IN ER 10/24/18 AFTER OVERDOSING ON METHAMPHETAMINE AND WAS SEVERELY TOXIC FROM IT, REQUIRING INTUBATION AND TRANSFER TO Physical Exam Vital Signs Capillary Refill : Height, Weight, BMI Height: 6'9" Weight: 215lbs. oz. 97.052766rz; 27.00 BMI Method:Estimated General Appearance: No Apparent Distress, WD/WN, Other (alert and oriented, belligerent, offered him shots of medication to control his headache here but he advises me he is not having a headache he just needs a primary care provider to refill his hydrocodone. I advised him I can't do that and he became even more agitated and left.) Eyes: Bilateral Eye Normal Inspection, Bilateral Eye PERRL Respiratory: No Accessory Muscle Use, No Respiratory Distress Extremity: Normal Inspection Neurologic/Psychiatric: Alert, Oriented x3, Other (during conversation with me patient looks to his right were no understanding and states "shut up" and then resumes conversation with me) Skin: Normal Color, Warm/Dry Procedures/Interventions Date of ETT Placement: Oct 24, 2018 Time of ETT Placement: 0844 Progress/Results/Core Measures Suspected Sepsis SIRS Temperature: Pulse: Respiratory Rate: Blood Pressure / Mean: Results/Orders Vital Signs/I&O Capillary Refill : Departure Impression Primary Impression: Left against medical advice Disposition: 07 AGAINST MEDICAL ADVICE Condition: Against Medical Advice Departure-Patient Inst. Decision time for Depature: 15:16 Referrals: RAMOS MORALES DO (PCP/Family) Primary Care Physician SREE HOOPER BULK PICKER Mar 31, 2020 15:16
== END 2020-03-31 15:13 | disposition left against medical advice (07) ==
LOC: EDUNIT# 15:03 → ER 15:04
DX: R51.9 Headache, unspecified (principal); Z88.0 Allergy status to penicillin; Z86.73 Personal history of transient ischemic attack (TIA), and cerebral infarction without residual deficits
CPT/HCPCS: 99281

== ENCOUNTER 2020-05-22 15:50 | Emergency (ER) | payer OTHER | END 2020-05-22 15:58 | disposition left against medical advice (07) | LOC: EDUNIT# 15:50 → ER 15:51 | DX: R51.9 Headache, unspecified (principal); R06.02 Shortness of breath ==

== ENCOUNTER 2020-08-20 02:50 | Emergency (ER) | payer OTHER ==
[~2020-08-20] VITALS: Ht 175.2 cm; Wt 88.4 kg
[2020-08-20 03:44] LABS: BILIRUBIN,URINE NEGATIVE (NEGATIVE); CLARITY,URINE CLEAR; COLOR,URINE YELLOW; GLUCOSE, URINE (UA) NEGATIVE (NEGATIVE); KETONES,URINE 1+ (NEGATIVE); LEUKOCYTE ESTERASE ,URINE NEGATIVE (NEGATIVE); NITRITE,URINE NEGATIVE (NEGATIVE); PH,URINE 6.5 (5-9); PROTEIN,URINE TRACE (NEGATIVE)
[2020-08-20 03:52] LABS: BACTERIA,URINE NEGATIVE /HPF; URINE OTHER LG SPERM /HPF
[2020-08-20 03:59] LABS: AMPHETAMINE SCREEN, URINE POSITIVE (NEGATIVE); BARBITURATE SCREEN URINE NEGATIVE (NEGATIVE); BENZODIAZEPINES SCREEN URINE NEGATIVE (NEGATIVE); CANNABINOID SCREEN, URINE POSITIVE (NEGATIVE); COCAINE SCREEN URINE NEGATIVE (NEGATIVE); METHADONE STAT NEGATIVE (NEGATIVE); METHAMPHETAMINE SCREEN URINE S POSITIVE (NEGATIVE); OPIATE SCREEN URINE NEGATIVE (NEGATIVE); OXYCODONE STAT NEGATIVE (NEGATIVE); PROPOXYPHENE STAT NEGATIVE (NEGATIVE); TRICYCLIC ANTIDEPRESSANTS SCRE NEGATIVE (NEGATIVE)
[2020-08-20] MEDS ORDERED: NS IV 1000 ML 1,000 ML IV SCH (04:00)
--- NOTE | 2020-08-20 04:04 | ED General ---
General Chief Complaint: General Problems/Pain Stated Complaint: GALLEGOS,DEHYDRATION,BACK PAIN Source of Information: Patient Exam Limitations: No Limitations (possible intoxication) (SHAUN TRIANA) History of Present Illness Date Seen by Provider: Aug 20, 2020 Time Seen by Provider: 03:54 Initial Comments Jamel is a 35 y/o male that presented to the ER due to headache and lower back pain. The patient is not a reliable source for information. He continues to change timelines when explaining his symptoms. The patients states he has been having increasing headaches for the last year. He has been dealing with chronic back pain as well. His pain is 7-8/10. He denies anything that makes it better. He thinks his headache is due to his AVM malformation and his noncompliance with BP medication. Denies radiation of pain. Associated pain with lights. The patient states he has used weed, methamphetamine and alcohol within the last 12- 24 hours. He currently stays at a friends house, but it is no longer a place he can stay right now. Denies the following: N/V, F/C, SOB, Chest pain, Abdominal pain, symptoms, Constipation, blood in urine or stool, sensory loss or motor weakness at this time. Patient states he gets his care at [facility], but admits to not following up. PMH: HTN, AVM, Drug use/abuse, appendectomy, tonsillectomy. Timing/Duration: 1/2 Hour Severity: Moderate Associated Systoms: Denies Symptoms (SHAUN TRIANA) Allergies and Home Medications Allergies Coded Allergies: Penicillins (Verified Adverse Reaction, Mild, 08/12/11) unknown reaction by pt Home Medications Hyoscyamine Sulfate 0.125 Mg Tablet, 0.125 MG PO Q4H Prescribed by: NICO WILSON on 09/16/15 1340 Patient Home Medication List Home Medication List Reviewed: Yes (UMBERTO SCOTT MD) Review of Systems Review of Systems Constitutional: no symptoms reported EENTM: see HPI Respiratory: no symptoms reported Cardiovascular: no symptoms reported Gastrointestinal: no symptoms reported Genitourinary: no symptoms reported Musculoskeletal: no symptoms reported Skin: no symptoms reported Psychiatric/Neurological: No Symptoms Reported Hematologic/Lymphatic: No Symptoms Reported Immunological/Allergic: no symptoms reported (SHAUN TRIANA) Past Zjhedlr-Rafhix-Dlegvq Hx Patient Social History Alcohol Use: Rarely Uses Drug of Choice: + IV METH, COCAINE, "SYNTHETIC HEROIN", THC, OTHERS- HEAVY/REGULAR USE Type Used: Cigarettes 2nd Hand Smoke Exposure: No Recent Hopitalizations: No (KONGSHAUN MED ISMAEL) Immunizations Up To Date Tetanus Booster (TDap): Unknown PED Vaccines UTD: Yes (SHAUN TRIANA MED ISMAEL) Seasonal Allergies Seasonal Allergies: No (KONGSHAUN MED ISMAEL) Past Medical History Surgeries: Yes Appendectomy, Tonsillectomy Respiratory: Yes Asthma Cardiac: Yes (DOES NOT TAKE MEDICATIONS) Hypertension Neurological: Yes (AVM BRAIN MALFORMATION--NO SURGERY) Stroke Reproductive Disorders: No Genitourinary: No Gastrointestinal: No Musculoskeletal: No Endocrine: No HEENT: No Cancer: No Psychosocial: Yes (POLYSUBSTANCE ABUSE) Depression Integumentary: No Blood Disorders: No (SHAUN TRIANA) Family Medical History Hypertension PT HAS BEEN INCARCERATED FOR 2 YEARS, AND WAS RELEASED 10/20/18 PT IN ER 10/24/18 AFTER OVERDOSING ON METHAMPHETAMINE AND WAS SEVERELY TOXIC FROM IT, REQUIRING INTUBATION AND TRANSFER TO (KONGSHAUN MED ISMAEL) Physical Exam Vital Signs Vital Signs - First Documented 08/20/20 08/20/20 03:00 06:17 Temp 36.8 Pulse 109 Resp 18 B/P (MAP) 169/114 (132) Pulse Ox 99 O2 Delivery Room Air (UMBERTO SCOTT MD) Vital Signs Capillary Refill : (KONGSHAUNCEASAR GUEVARA) Height, Weight, BMI Height: 6'9" Weight: 215lbs. oz. 97.861080um; 25.00 BMI Method:Estimated General Appearance: No Apparent Distress, WD/WN Eyes: Bilateral Eye EOMI HEENT: PERRL/EOMI, Pharynx Normal, Other Neck: Full Range of Motion, Other (cervical tenderness BL, (-) Kernigs) Respiratory: Chest Non Tender, Normal Breath Sounds, No Accessory Muscle Use, No Respiratory Distress Cardiovascular: No Edema, Normal Peripheral Pulses, Tachycardia Gastrointestinal: Non Tender, Soft Extremity: No Calf Tenderness, No Pedal Edema Neurologic/Psychiatric: Alert, aerial lineman II-XII Norm as Tested, Other (inconsistency with timelines, fatigued) Skin: Warm/Dry (KONG,theeventwall) Procedures/Interventions Date of ETT Placement: Oct 24, 2018 Time of ETT Placement: 08 (KONGCerteon) Progress/Results/Core Measures Suspected Sepsis SIRS Temperature: Pulse: Respiratory Rate: Laboratory Tests 08/20/20 04:03: White Blood Count 8.5 Blood Pressure / Mean: Laboratory Tests 08/20/20 04:03: Creatinine 0.97, Platelet Count 265, Total Bilirubin 0.9 ([employer]) Results/Orders Lab Results Laboratory Tests Test 08/20/20 03:20 08/20/20 04:03 Range/Units Urine Color YELLOW Urine Clarity CLEAR Urine pH 6.5 5-9 Urine Specific Cornell 1.025 H 1.016-1.022 Urine Protein TRACE H NEGATIVE Urine Glucose (UA) NEGATIVE NEGATIVE Urine Ketones 1+ H NEGATIVE Urine Nitrite NEGATIVE NEGATIVE Urine Bilirubin NEGATIVE NEGATIVE Urine Urobilinogen 0.2 < = 1.0 MG/DL Urine Leukocyte Esterase NEGATIVE NEGATIVE Urine RBC (Auto) NEGATIVE NEGATIVE Urine RBC NONE /HPF Urine WBC NONE /HPF Urine Squamous Epithelial Cells 2-5 /HPF Urine Crystals NONE /LPF Urine Bacteria NEGATIVE /HPF Urine Casts NONE /LPF Urine Mucus LARGE H /LPF Urine Other LG SPERM H /HPF Urine Culture Indicated NO Urine Opiates Screen NEGATIVE NEGATIVE Urine Oxycodone Screen NEGATIVE NEGATIVE Urine Methadone Screen NEGATIVE NEGATIVE Urine Propoxyphene Screen NEGATIVE NEGATIVE Urine Barbiturates Screen NEGATIVE NEGATIVE Ur Tricyclic Antidepressants Screen NEGATIVE NEGATIVE Urine Phencyclidine Screen NEGATIVE NEGATIVE Urine Amphetamines Screen POSITIVE H NEGATIVE Urine Methamphetamines Screen POSITIVE H NEGATIVE Urine Benzodiazepines Screen NEGATIVE NEGATIVE Urine Cocaine Screen NEGATIVE NEGATIVE Urine Cannabinoids Screen POSITIVE H NEGATIVE White Blood Count 8.5 4.3-11.0 10^3/uL Red Blood Count 4.73 4.30-5.52 10^6/uL Hemoglobin 14.5 13.3-17.7 g/dL Hematocrit 42 40-54 % Mean Corpuscular Volume 88 80-99 fL Mean Corpuscular Hemoglobin 31 25-34 pg Mean Corpuscular Hemoglobin Concent 35 32-36 g/dL Red Cell Distribution Width 13.6 10.0-14.5 % Platelet Count 265 130-400 10^3/uL Mean Platelet Volume 8.7 L 9.0-12.2 fL Immature Granulocyte % (Auto) 0 % Neutrophils (%) (Auto) 71 42-75 % Lymphocytes (%) (Auto) 19 12-44 % Monocytes (%) (Auto) 8 0-12 % Eosinophils (%) (Auto) 1 0-10 % Basophils (%) (Auto) 1 0-10 % Neutrophils # (Auto) 6.1 1.8-7.8 10^3/uL Lymphocytes # (Auto) 1.6 1.0-4.0 10^3/uL Monocytes # (Auto) 0.7 0.0-1.0 10^3/uL Eosinophils # (Auto) 0.1 0.0-0.3 10^3/uL Basophils # (Auto) 0.0 0.0-0.1 10^3/uL Immature Granulocyte # (Auto) 0.0 0.0-0.1 10^3/uL Sodium Level 139 135-145 MMOL/L Potassium Level 3.8 3.6-5.0 MMOL/L Chloride Level 104 98-107 MMOL/L Carbon Dioxide Level 22 21-32 MMOL/L Anion Gap 13 5-14 MMOL/L Blood Urea Nitrogen 10 7-18 MG/DL Creatinine 0.97 0.60-1.30 MG/DL Estimat Glomerular Filtration Rate > 60 BUN/Creatinine Ratio 10 Glucose Level 85 70-105 MG/DL Calcium Level 8.9 8.5-10.1 MG/DL Corrected Calcium 8.6 8.5-10.1 MG/DL Magnesium Level 2.0 1.6-2.4 MG/DL Total Bilirubin 0.9 0.1-1.0 MG/DL Aspartate Amino Transf (AST/SGOT) 28 5-34 U/L Alanine Aminotransferase (ALT/SGPT) 24 0-55 U/L Alkaline Phosphatase 54 40-136 U/L Total Protein 7.5 6.4-8.2 GM/DL Albumin 4.4 3.2-4.5 GM/DL Serum Alcohol < 10 <10 MG/DL (UMBERTO SCOTT MD) My Orders Orders - UMBERTO SCOTT MD Cbc With Automated Diff (08/20/20 03:02) Comprehensive Metabolic Panel (08/20/20 03:02) Magnesium (08/20/20 03:02) Ua Culture If Indicated (08/20/20 03:02) Ed Iv/Invasive Line Start (08/20/20 03:02) Drug Screen Stat (Urine) (08/20/20 03:04) Alcohol (08/20/20 03:53) Ns Iv 1000 Ml (Sodium Chloride 0.9%) (08/20/20 04:00) Ct Head Wo (08/20/20 03:53) Ketorolac Injection (Toradol Injection) (08/20/20 05:00) (UMBERTO SCOTT MD) Medications Given in ED (UMBERTO SCOTT MD) Vital Signs/I&O 08/20/20 08/20/20 03:00 06:17 Temp 36.8 36.8 Pulse 109 77 Resp 18 18 B/P (MAP) 169/114 (132) 142/97 (132) Pulse Ox 99 O2 Delivery Room Air Room Air (UMBERTO SCOTT MD) Vital Signs/I&O Capillary Refill : (SHAUN TRIANA) Progress Note : Time: 04:12 Progress Note Spoke to patient and will obtain labs and imaging. Results will dictate further workup. Patient in agreement with plan. He is currently resting comfortably in bed. Possible intoxication at this time. (SHAUN TRIANA) Progress Note : Progress Note Lab work was unremarkable except for positive marijuana and methamphetamine drug screen. CT of the head was obtained and showed slight increase in the extra- axial component of his AVM. Imaging was otherwise unremarkable. Patient was treated with a liter of IV fluid and Toradol with good results. I discussed follow-up with the patient. He is already aware he needs to be seen by a specialist for his AVM but he has not committed to this follow-up yet. I also stressed the importance of following up for his blood pressure and general health. I also Encouraged him to seek assistance from a substance abuse treatment program such as the [facility] addiction program or [facility]. (UMBERTO SCOTT MD) Diagnostic Imaging Diagonstic Imaging: CT Plain Films/CT/US/NM/MRI: head Comments CT head viewed by me and report reviewed. See report below: NAME: JAMEL HERCULES MED REC#: [id number] PT STATUS: DEP ER : 1985 PHYSICIAN: UMBERTO SCOTT MD ADMIT DATE: 08/20/20/ER Signed Date of Exam:08/20/20 CT HEAD WO PROCEDURE: CT head without contrast. TECHNIQUE: Multiple contiguous axial images were obtained through the brain without the use of intravenous contrast. Auto Exposure Controls were utilized during the CT exam to meet ALARA standards for radiation dose reduction. INDICATION: Headache and disorientation. AVM Comparison is made with a study from 02/28/2020. The ventricles are normal in size, shape and position. The partially calcified vascular mass in the left parietal lobe is again seen. The parenchymal component appears stable. There is an extra-axial component over the left parietal region may be slightly more prominent. No increase in mass effect or acute hemorrhage is evident. No other extra-axial mass or hemorrhage. There is no acute bony abnormality. IMPRESSION: The known AVM is again seen. The extra-axial component over the left parietal region may be slightly more prominent compared to the 02/28/2020 study but no acute hemorrhage is evident. Dictated by: Dictated on workstation # [id number] Dict: 08/20/20 0659 Trans: 08/20/20 0847 [facility] [id number] Interpreted by: JAMES SHEETS MD Electronically signed by: JAMES SHEETS MD 08/20/20 0847 (UMBERTO SCOTT MD) Departure Impression Primary Impression: Chronic headache Qualified Codes: R51.9 - Headache, unspecified; G89.29 - Other chronic pain Additional Impressions: Polysubstance abuse Brain mass Hypertension Qualified Codes: I10 - Essential (primary) hypertension Disposition: 01 HOME, SELF-CARE Condition: Improved Departure-Patient Inst. Decision time for Depature: 06:08 (UMBERTO SCOTT MD) Referrals: HAMLET STAPLETON APRN (PCP/Family) Primary Care Physician Patient Instructions: Headache, Adult (DC), Methamphetamine Add. Discharge Instructions: Drink plenty of clear liquids to stay well-hydrated. For pain you may take Tylenol (acetaminophen) up to 1000 mg every 6 hours as needed and/or ibuprofen up to 600 mg every 6 hours as needed. Follow-up with your primary care provider soon as possible. Seek referral to a neurosurgeon for further evaluation of your brain mass. Avoid use of illicit substances such as marijuana, methamphetamines, and alcohol as these may worsen your symptoms. Consider enrolling in an addiction treatment program such as the outpatient program with the [facility] or the [facility] office. Call with questions or concerns. Return to the ER with worsening symptoms. All discharge instructions reviewed with patient and/or family. Voiced u nderstanding. Medical Student Attestation and Attending Note: I have personally interviewed and examined this patient along with Shaun Mcpherson, MS4. I have reviewed student documentation including history, physical, and assessments. I agree with the documentation except where otherwise noted. Exam: General: Alert, Somnolent, no acute distress, well developed HEENT: Normocephalic and atraumatic Heart: Regular rate and rhythm without murmur Lungs: Clear to auscultation bilaterally with normal effort Abdomen: Soft, nontender, nondistended, normal bowel sounds Neuropsych: Alert, Confused conversation around timelines, no focal deficits Skin: Warm and dry without rashes (UMBERTO SCOTT MD) Copy Copies To 1: DEZ TAYLOR BRANDON MED STUD Aug 20, 2020 04:04 UMBERTO SCOTT MD Aug 20, 2020 06:10
[2020-08-20 04:12] LABS: BASOPHILS % (AUTO) 1 % (0-10); EOSINOPHILS # (AUTO) 0.1 10^3/uL (0.0-0.3); EOSINOPHILS % (AUTO) 1 % (0-10); HEMATOCRIT 42 % (40-54); HEMOGLOBIN 14.5 g/dL (13.3-17.7); LYMPHOCYTES # (AUTO) 1.6 10^3/uL (1.0-4.0); LYMPHOCYTES % (AUTO) 19 % (12-44); MEAN CORPUSCULAR HEMOGLOBIN 31 pg (25-34); MEAN CORPUSCULAR HGB CONC 35 g/dL (32-36); MEAN CORPUSCULAR VOLUME 88 fL (80-99); MEAN PLATELET VOLUME 8.7 fL (9.0-12.2); MONOCYTES # (AUTO) 0.7 10^3/uL (0.0-1.0); MONOCYTES % (AUTO) 8 % (0-12); NEUTROPHILS # (AUTO) 6.1 10^3/uL (1.8-7.8); NEUTROPHILS % (AUTO) 71 % (42-75); PLATELET COUNT 265 10^3/uL (130-400); WHITE BLOOD COUNT 8.5 10^3/uL (4.3-11.0)
[2020-08-20 04:21] LABS: ALBUMIN 4.4 GM/DL (3.2-4.5); CHLORIDE 104 MMOL/L (98-107); POTASSIUM 3.8 MMOL/L (3.6-5.0); SODIUM 139 MMOL/L (135-145)
[2020-08-20 04:22] LABS: CALCIUM 8.9 MG/DL (8.5-10.1)
[2020-08-20 04:23] LABS: GLUCOSE 85 MG/DL (70-105); TOTAL PROTEIN 7.5 GM/DL (6.4-8.2)
[2020-08-20 04:24] LABS: CARBON DIOXIDE 22 MMOL/L (21-32)
[2020-08-20 04:25] LABS: BILIRUBIN,TOTAL 0.9 MG/DL (0.1-1.0)
[2020-08-20 04:27] LABS: ALKALINE PHOSPHATASE 54 U/L (40-136); CREATININE SERUM 0.97 MG/DL (0.60-1.30); GFR ESTIMATED > 60
[2020-08-20 04:28] LABS: BUN/CREATININE RATIO 10
[2020-08-20 04:30] LABS: ALANINE AMINOTRANSFERASE 24 U/L (0-55)
[2020-08-20] MEDS ORDERED: KETOROLAC 30 MG/ML VIAL IVP ONE (05:00)
[2020-08-20 06:17] VITALS: BP 142/97
--- NOTE | 2020-08-20 07:06 | Diagnostic Imaging Report ---
PROCEDURE: CT head without contrast. TECHNIQUE: Multiple contiguous axial images were obtained through the brain without the use of intravenous contrast. Auto Exposure Controls were utilized during the CT exam to meet ALARA standards for radiation dose reduction. INDICATION: Headache and disorientation. AVM Comparison is made with a study from 02/28/2020. The ventricles are normal in size, shape and position. The partially calcified vascular mass in the left parietal lobe is again seen. The parenchymal component appears stable. There is an extra-axial component over the left parietal region may be slightly more prominent. No increase in mass effect or acute hemorrhage is evident. No other extra-axial mass or hemorrhage. There is no acute bony abnormality. IMPRESSION: The known AVM is again seen. The extra-axial component over the left parietal region may be slightly more prominent compared to the 02/28/2020 study but no acute hemorrhage is evident. Dictated by: Dictated on workstation # [id number]
== END 2020-08-20 06:17 | disposition home or self-care (01) ==
LOC: EDUNIT# 02:50 → ER 02:53
DX: G89.29 Other chronic pain (principal); G93.89 Other specified disorders of brain; F19.10 Other psychoactive substance abuse, uncomplicated; I10 Essential (primary) hypertension; M54.9 Dorsalgia, unspecified; Z88.0 Allergy status to penicillin; Z86.73 Personal history of transient ischemic attack (TIA), and cerebral infarction without residual deficits; Z82.49 Family history of ischemic heart disease and other diseases of the circulatory system
CPT/HCPCS: 70450; 80053; 80306; 81000; 83735; 85025; G0480; 36415; 80320

== ENCOUNTER 2020-10-04 18:47 | Emergency (ER) | payer OTHER ==
[~2020-10-04] VITALS: Ht 175.2 cm; Wt 84.0 kg
--- NOTE | 2020-10-04 18:56 | ED General ---
General Chief Complaint: Chest Pain Stated Complaint: CP Source of Information: EMS Exam Limitations: No Limitations History of Present Illness Date Seen by Provider: Oct 04, 2020 Time Seen by Provider: 18:54 Initial Comments To ER by EMS with reports of initially chest pain. This began when he was pulled over by police and informed that he had a warrant and was being arrested. However upon getting into the back of the ambulance he reported that he did not actually have chest pain, he has been having headaches however. States that he has a known AV malformation in the brain. Timing/Duration: Other Severity: Moderate Associated Systoms: Headaches Allergies and Home Medications Allergies Coded Allergies: Penicillins (Verified Adverse Reaction, Mild, 08/12/11) unknown reaction by pt Home Medications Hyoscyamine Sulfate 0.125 Mg Tablet, 0.125 MG PO Q4H Prescribed by: NICO WILSON on 09/16/15 1340 Patient Home Medication List Home Medication List Reviewed: Yes Review of Systems Review of Systems Constitutional: see HPI EENTM: see HPI Respiratory: no symptoms reported Cardiovascular: no symptoms reported Genitourinary: no symptoms reported Musculoskeletal: no symptoms reported Skin: no symptoms reported Psychiatric/Neurological: No Symptoms Reported Hematologic/Lymphatic: No Symptoms Reported Immunological/Allergic: no symptoms reported Past Fjziudm-Hrurok-Ptdxut Hx Patient Social History Drug of Choice: + IV METH, COCAINE, "SYNTHETIC HEROIN", THC, OTHERS- HEAVY/REGULAR USE Type Used: Cigarettes 2nd Hand Smoke Exposure: No Recent Hopitalizations: No Immunizations Up To Date Tetanus Booster (TDap): Unknown PED Vaccines UTD: Yes Seasonal Allergies Seasonal Allergies: No Past Medical History Surgeries: Yes Appendectomy, Tonsillectomy Respiratory: Yes Asthma Cardiac: Yes (DOES NOT TAKE MEDICATIONS) Hypertension Neurological: Yes (AVM BRAIN MALFORMATION--NO SURGERY) Stroke Reproductive Disorders: No Genitourinary: No Gastrointestinal: No Musculoskeletal: No Endocrine: No HEENT: No Cancer: No Psychosocial: Yes (POLYSUBSTANCE ABUSE) Depression Integumentary: No Blood Disorders: No Family Medical History Hypertension PT HAS BEEN INCARCERATED FOR 2 YEARS, AND WAS RELEASED 10/20/18 PT IN ER 10/24/18 AFTER OVERDOSING ON METHAMPHETAMINE AND WAS SEVERELY TOXIC FROM IT, REQUIRING INTUBATION AND TRANSFER TO Physical Exam Vital Signs Capillary Refill : Height, Weight, BMI Height: 6'9" Weight: 215lbs. oz. 97.078078pn; 28.00 BMI Method:Estimated General Appearance: No Apparent Distress, WD/WN, Other (Alert and oriented GCS 15. Upon arrival here he again confirms that he does not have any chest pain nor has he had any chest pain at any time today.) HEENT: PERRL/EOMI, TMs Normal, Normal ENT Inspection Neck: Full Range of Motion, Normal Inspection Respiratory: No Accessory Muscle Use, No Respiratory Distress Cardiovascular: Regular Rate, Rhythm, Normal Peripheral Pulses Gastrointestinal: Normal Bowel Sounds, Non Tender, Soft Extremity: Normal Capillary Refill, Normal Inspection Neurologic/Psychiatric: Alert, Oriented x3 Skin: Normal Color, Warm/Dry Procedures/Interventions Date of ETT Placement: Oct 24, 2018 Time of ETT Placement: 0844 Progress/Results/Core Measures Suspected Sepsis SIRS Temperature: Pulse: Respiratory Rate: Blood Pressure / Mean: Results/Orders My Orders Orders - SREE HOOPER APRN Ct Head Wo (10/04/20 18:53) Vital Signs/I&O Capillary Refill : Departure Impression Primary Impression: Head ache Disposition: 01 HOME, SELF-CARE Condition: Stable Departure-Patient Inst. Decision time for Depature: 18:56 Referrals: HAMLET STAPLETON APRN (PCP/Family) Primary Care Physician Patient Instructions: Headache, Adult ED SREE HOOPER APRN Oct 04, 2020 18:56
--- NOTE | 2020-10-04 19:13 | Diagnostic Imaging Report ---
PROCEDURE: CT head without contrast. TECHNIQUE: Multiple contiguous axial images were obtained through the brain without the use of intravenous contrast. Auto Exposure Controls were utilized during the CT exam to meet ALARA standards for radiation dose reduction. INDICATION: Headache for one week. COMPARISON: 08/20/2020. FINDINGS: The ventricles and sulci are within normal limits for size. Densely calcified nodule in the left frontal parietal zone has a similar appearance compared to previous study. This corresponds to patient's known arteriovenous malformation. Prominent vascular structures extend to the dural space in the high left frontal lobe region. There is no evidence of an acute hemorrhage. There is no evidence of developing infarct. Calvarium is intact and the visualized paranasal sinuses are clear. IMPRESSION: Stable CT scan of the head with known left hemispheric arteriovenous malformation. No new abnormality is identified. Dictated by: Dictated on workstation # [id number]
[2020-10-04] MEDS ORDERED: KETOROLAC 60 MG/2 ML VIAL IM ONE (19:30)
[2020-10-04 23:59] VITALS: BP 138/76
== END 2020-10-04 23:59 | disposition home or self-care (01) ==
LOC: EDUNIT# 18:47 → ER 18:48
DX: R51.9 Headache, unspecified (principal); Z86.73 Personal history of transient ischemic attack (TIA), and cerebral infarction without residual deficits; Z88.0 Allergy status to penicillin
CPT/HCPCS: 70450

== ENCOUNTER 2021-05-28 11:22 | Emergency (ER) | payer SELFPAY | END 2021-05-28 11:40 | disposition left against medical advice (07) | LOC: EDUNIT# 11:22 → ER 11:23 | DX: R50.9 Fever, unspecified (principal) ==